=== PATIENT | male | born 1945 | race Caucasian/White ===

== ENCOUNTER → 2016-11-29 | Outpatient (CLI) | payer MEDICARE, BC ==
[2016-11-29 14:03] LABS: ANION GAP 10 MEQ/L (8-16); BLOOD UREA NITROGEN 14 MG/DL (7-18); CALCIUM LEVEL 9.5 MG/DL (8.8-10.2); CARBON DIOXIDE LEVEL 29 MEQ/L (21-32); CHLORIDE LEVEL 102 MEQ/L (98-107); CREATININE FOR GFR 1.16 MG/DL (0.70-1.30); GLOMERULAR FILTRATION RATE > 60.0 (>42); GLUCOSE, FASTING 142 MG/DL (83-110); POTASSIUM SERUM 3.9 MEQ/L (3.5-5.1); SODIUM LEVEL 141 MEQ/L (136-145)
[2016-11-29 14:18] LABS: COLLAGEN ADP 117 SECONDS (56-103)
--- NOTE | 2016-11-29 19:03 | ECGEPIP ---
Stationary ECG Study [facility] Test Date: 2016-11-29 Pat Name: LOGAN MORFIN Department: Room: - Gender: M Cofounder: MATEO : 1945 Requested By: Prieto Bui Order Number: [id number] Reading MD: Prieto Zuñiga Measurements Intervals [place] Rate: 62 P: 44 AK: 172 QRS: 7 QRSD: 98 T: 49 QT: 386 QTc: 395 Interpretive Statements SINUS RHYTHM NONSPECIFIC ST & T-WAVE ABNORMALITY Comparison tracing not on file Electronically Signed On 11-29-2016 19:02:59 EST by Prieto Zuñiga
== END ==
LOC: M LAB 12:45
PROVIDERS: ATTEND Ophthalmology
DX: Z01.818 Encounter for other preprocedural examination (principal); H25.13 Age-related nuclear cataract, bilateral

== ENCOUNTER → 2016-12-16 | Day surgery (SDC) | payer MEDICARE, BC ==
[~2016-12-16] VITALS: Ht 160 cm; Wt 76.2 kg
[~2016-12-16] MED LIST: ACETYLCHOLINE OPHTH SOLN 1% 2ML As Ordered ONE; ASPI1TAB24 PO; BALANCED SALT IRRIGATION SOLUTION 500ML BAG (FOR OR EYE MACHINE) As Ordered ONE; CEFUROXIME 1MG/0.1ML INTRACAMERAL INJ As Ordered ONE; CYCLOPENTOLATE 2% OPHTH SOLN As Ordered ONE; CYCLOPENTOLATE 2% OPHTH SOLN OS SCH; D5W/0.2% SODIUM CHLORIDE 1,000 ML IV SCH; FLOM5CAP PO; FOSI40TA PO; GLIP5TAB15 PO; HEALON DUET (HEALON 10MG/ML 0.55ML & HEALON ENDOCOAT 30MG/ML 0.85ML) As Ordered ONE; HYDR25TAB PO; LIDOCAINE 0.75%/EPINEPHRINE 0.025% IN BSS 1ML SYR INTRACAMERAL (OR ONLY) As Ordered ONE; LIDOCAINE 4% INJ 5 ML AMP As Ordered ONE; LOVA20TA2 PO; METF-415 PO; MIDAZOLAM INJ 2 MG/2 ML VIAL (J2250) As Ordered ONE; OFLOXACIN 0.3 % (OCUFLOX) OPTH SOL 5ML OS ONE; OMEP20CA3 PO; PARO20TA2 PO; PHENYLEPHRINE 2.5% OPHTH SOL 2ML OS ONE; POVIDONE-IODINE 5% OPHTH PREP SOL 30ML As Ordered ONE; PROPARACAINE 0.5% OPHTH SOL 15ML OS ONE; SULI200T PO; TOBRADEX OPHTH OINT 3.5 GM As Ordered ONE; TRAM50TA2 PO; TROPICAMIDE 1% OPHTH SOLN 2 ML OS ONE; fentaNYL 100 MCG/2 ML INJECTION (J3010) As Ordered ONE
[2016-12-16 10:00] VITALS: BP 160/78
--- NOTE | 2016-12-17 13:01 | RO ---
DATE OF PROCEDURE: 12/16/2016 PREOPERATIVE DIAGNOSES: 1. Dense visually significant nuclear sclerotic cataract, left eye. 2. Small pupil, left eye. POSTOPERATIVE DIAGNOSES: 1. Dense visually significant nuclear sclerotic cataract, left eye. 2. Small pupil, left eye. 3. Intraoperative floppy iris syndrome, left eye. PROCEDURE: Complex cataract extraction with use of phacoemulsification, and Malyugin ring and placement of intraocular lens AU00T0, 22.5 Diopters in the left eye. SURGEON: Yusuf Joshi DO REHABILITATION ATTENDANT: ANESTHESIA: Local with monitored anesthesia care (MAC) and peribulbar block (0.75% Marcaine, 2% lidocaine) and use of Shugarcaine (4% lidocaine, 1:1000 epinephrine). COMPLICATIONS: None. POSTOPERATIVE CONDITION: Stable. INDICATION FOR SURGERY: Blurred vision of the left eye affecting patient's activities of daily living. DESCRIPTION OF PROCEDURE: The patient was seen in the preoperative area and properly identified. The correct operative eye was identified and marked. Attention was turned to that eye. The patient received optical antibiotics in the preoperative area. The patient then received topical dilating drops consisting of tropicamide and phenylephrine. The patient was then transferred to the operating room. The correct side was reidentified. The patient received topical anesthetics and antibiotics on the surface of the eye. The eye was prepped and draped in a sterile fashion. The upper and lower eyelids were isolated with Tegaderm tape, and the lids were held open with an adjustable speculum. Using a sideport blade, a paracentesis incision was made. Shugarcaine was then injected into the anterior chamber. Viscoelastic was placed into the anterior chamber, a 2.65mm temporal clear corneal incision was made. A 7 mm Malyugin ring was placed without difficulty. Viscoelastic was then injected into the anterior chamber through the paracentesis. . A continuous curvilinear capsulorrhexis was created with the aid of a 26-gauge cystotome and Utrata forceps. Hydrodissection was performed with BSS on a blunt cannula until the nucleus was freely mobile. The crystalline lens was phacoemulsified and aspirated. Additional cohesive viscoelastic was placed into the capsular bag to deepen it. A AU00T0, 22.5 Diopters lens was placed into the capsular bag and confirmed by visualizing the continuous curvilinear capsulorrhexis. Additional irrigation and aspiration was used to remove cortical material. The Malyugin ring was removed from the eye, and irrigation and aspiration was then used removing the remaining viscoelastic. The clear corneal incision was hydrated with BSS on a blunt cannula. The lens was well positioned. The incisions were then tested for leaks and found to be negative. The eye was then palpated for appropriate pressure and adjusted accordingly with BSS. Several drops of antibiotics and Iopidine were placed in the eye. The eyelid speculum was then carefully removed. Maxitrol ointment was placed in the eye. An eye patch and shield were then secured over the eye. The patient tolerated the procedure well and was discharged to the recovery unit in a stable condition. VERONICA
== END | disposition home or self-care (01) ==
LOC: M SDC 06:35
PROVIDERS: ATTEND Ophthalmology
DX: H25.12 Age-related nuclear cataract, left eye (principal); H21.562 Pupillary abnormality, left eye; H21.81 Floppy iris syndrome; R07.9 Chest pain, unspecified; E11.9 Type 2 diabetes mellitus without complications; G47.30 Sleep apnea, unspecified; I10 Essential (primary) hypertension; E78.5 Hyperlipidemia, unspecified; K21.9 Gastro-esophageal reflux disease without esophagitis; Z79.82 Long term (current) use of aspirin; Z79.899 Other long term (current) drug therapy; F17.210 Nicotine dependence, cigarettes, uncomplicated
CPT/HCPCS: 66982; J2250; J3010; V2632

== ENCOUNTER → 2016-12-30 | Day surgery (SDC) | payer MEDICARE, BC ==
[~2016-12-30] VITALS: Ht 160 cm; Wt 76.0 kg
[~2016-12-30] MED LIST changes: +CYCLOPENTOLATE 1% OPHTH SOLN 2 ML BTL OD SCH; +CYCLOPENTOLATE 2% OPHTH SOLN OD SCH; -CYCLOPENTOLATE 2% OPHTH SOLN OS SCH; -LIDOCAINE 4% INJ 5 ML AMP As Ordered ONE; +OFLOXACIN 0.3 % (OCUFLOX) OPTH SOL 5ML OD ONE; -OFLOXACIN 0.3 % (OCUFLOX) OPTH SOL 5ML OS ONE; +ONDANSETRON 4MG/2ML VIAL (J2405) IV PRN; +PHENYLEPHRINE 2.5% OPHTH SOL 2ML OD ONE; -PHENYLEPHRINE 2.5% OPHTH SOL 2ML OS ONE; +PROPARACAINE 0.5% OPHTH SOL 15ML OD ONE; -PROPARACAINE 0.5% OPHTH SOL 15ML OS ONE; +TROPICAMIDE 1% OPHTH SOLN 2 ML OD ONE; -TROPICAMIDE 1% OPHTH SOLN 2 ML OS ONE
[2016-12-30 09:30] VITALS: BP 134/58
--- NOTE | 2016-12-30 14:45 | RO ---
DATE OF PROCEDURE: 12/30/2016 PREOPERATIVE DIAGNOSES: 1. Dense visually significant nuclear sclerotic cataract right eye. 2. Small pupil right eye. POSTOPERATIVE DIAGNOSES: 1. Dense visually significant nuclear sclerotic cataract right eye. 2. Small pupil right eye. 3. Intraoperative floppy iris syndrome right eye. PROCEDURE: Complex cataract extraction with use of phacoemulsification, Malyugin ring and placement of intraocular lens Efra AU00T0, 22.5 diopters, right eye. SURGEON: Yusuf Joshi DO SENIOR CORPORATE RECRUITER: ANESTHESIA: Local with monitored anesthesia care (MAC) and use of Shugarcaine ( 4% lidocaine, 1:1000 epinephrine). COMPLICATIONS: None. POSTOPERATIVE CONDITION: Stable. INDICATION FOR SURGERY: Blurred vision right eye affecting patient's activities of daily living. DESCRIPTION OF PROCEDURE: The patient was seen in the preoperative area and properly identified. The correct operative eye was identified and marked. Attention was turned to that eye. The patient received optical antibiotics in the preoperative area. The patient then received topical dilating drops consisting of tropicamide and phenylephrine. The patient was then transferred to the operating room. The correct side was reidentified. The patient received topical anesthetics and antibiotics on the surface of the eye. The eye was prepped and draped in a sterile fashion. The upper and lower eyelids were isolated with Tegaderm tape, and the lids were held open with an adjustable speculum. Using a sideport blade, a paracentesis incision was made. Shugarcaine was then injected into the anterior chamber. Viscoelastic was placed into the anterior chamber. A 2.65mm temporal clear corneal incision was made. A 7 mm Malyugin ring was placed without difficulty. Additional viscoelastic was then injected into the anterior chamber. A continuous curvilinear capsulorrhexis was created with the aid of a 26-gauge cystotome and Utrata forceps. Hydrodissection was performed with BSS on a blunt cannula until the nucleus was freely mobile. The crystalline lens was phacoemulsified and aspirated. Additional cohesive viscoelastic was placed into the capsular bag to deepen it. A Efra AU00T0, 22.5 diopters lens was placed into the capsular bag and confirmed by visualizing the continuous curvilinear capsulorrhexis. Additional irrigation and aspiration was used to remove cortical material. The Malyugin ring was removed from the eye, and irrigation and aspiration was then used removing the remaining viscoelastic. The clear corneal incision was hydrated with BSS on a blunt cannula. The lens was well positioned. ReSure sealant was used to close the main incision and the incision was tested with wet tavera and was found to be water tight. The eye was then palpated for appropriate pressure and adjusted accordingly with BSS. Preservative-free compounded Cefuroxime was injected into the paracentesis incision approximately 0.5 mL. The eyelid speculum was then carefully removed. Tobradex ointment was placed in the eye. An eye patch and shield were then secured over the eye. The patient tolerated the procedure well and was discharged to the recovery unit in a stable condition. VERONICA
== END | disposition home or self-care (01) ==
LOC: M SDC 06:43
PROVIDERS: ATTEND Ophthalmology
DX: H25.11 Age-related nuclear cataract, right eye (principal); H21.561 Pupillary abnormality, right eye; H21.81 Floppy iris syndrome; E11.9 Type 2 diabetes mellitus without complications; I10 Essential (primary) hypertension; E78.5 Hyperlipidemia, unspecified; K21.9 Gastro-esophageal reflux disease without esophagitis; R07.9 Chest pain, unspecified; Z79.82 Long term (current) use of aspirin; Z79.899 Other long term (current) drug therapy; F17.210 Nicotine dependence, cigarettes, uncomplicated
CPT/HCPCS: 66982; J2250; J3010; V2632

== ENCOUNTER → 2017-09-16 | Outpatient (REF) | payer MEDICARE, BC ==
[~2017-09-16] MED LIST changes: -ACETYLCHOLINE OPHTH SOLN 1% 2ML As Ordered ONE; +ASPI-161 PO; -ASPI1TAB24 PO; -BALANCED SALT IRRIGATION SOLUTION 500ML BAG (FOR OR EYE MACHINE) As Ordered ONE; -CEFUROXIME 1MG/0.1ML INTRACAMERAL INJ As Ordered ONE; -CYCLOPENTOLATE 1% OPHTH SOLN 2 ML BTL OD SCH; -CYCLOPENTOLATE 2% OPHTH SOLN As Ordered ONE; -CYCLOPENTOLATE 2% OPHTH SOLN OD SCH; -D5W/0.2% SODIUM CHLORIDE 1,000 ML IV SCH; +GLIP1TAB49 PO; -GLIP5TAB15 PO; -HEALON DUET (HEALON 10MG/ML 0.55ML & HEALON ENDOCOAT 30MG/ML 0.85ML) As Ordered ONE; -LIDOCAINE 0.75%/EPINEPHRINE 0.025% IN BSS 1ML SYR INTRACAMERAL (OR ONLY) As Ordered ONE; -MIDAZOLAM INJ 2 MG/2 ML VIAL (J2250) As Ordered ONE; -OFLOXACIN 0.3 % (OCUFLOX) OPTH SOL 5ML OD ONE; -ONDANSETRON 4MG/2ML VIAL (J2405) IV PRN; -PARO20TA2 PO; +PARO20TA3 PO; -PHENYLEPHRINE 2.5% OPHTH SOL 2ML OD ONE; -POVIDONE-IODINE 5% OPHTH PREP SOL 30ML As Ordered ONE; -PROPARACAINE 0.5% OPHTH SOL 15ML OD ONE; -TOBRADEX OPHTH OINT 3.5 GM As Ordered ONE; -TROPICAMIDE 1% OPHTH SOLN 2 ML OD ONE; -fentaNYL 100 MCG/2 ML INJECTION (J3010) As Ordered ONE
== END ==
LOC: M LAB REF 16:30
PROVIDERS: ATTEND Otolaryngology
DX: L02.01 Cutaneous abscess of face (principal)

== ENCOUNTER → 2022-03-15 | Outpatient (CLI) | payer MEDICARE, BC ==
[~2022-03-15] MED LIST changes: +FLOM0.4C39 PO; -FLOM5CAP PO; -FOSI40TA PO; +FOSI40TA59 PO; -GLIP1TAB49 PO; +GLIP5TAB20 PO; +HYDR-3490 PO; -HYDR25TAB PO; +OMEP1CAP73 PO; -OMEP20CA3 PO
== END ==
LOC: M PLARAD 12:32
PROVIDERS: ATTEND Internal Medicine Pulmonary Disease
DX: R91.1 Solitary pulmonary nodule (principal)
CPT/HCPCS: 78815; A9552

== ENCOUNTER → 2022-04-06 | Outpatient (CLI) | payer MEDICARE, BC | LOC: M ONCR 13:56 | PROVIDERS: ATTEND General Practice | DX: R91.1 Solitary pulmonary nodule (principal); R53.83 Other fatigue; J45.909 Unspecified asthma, uncomplicated; Z79.82 Long term (current) use of aspirin; Z79.84 Long term (current) use of oral hypoglycemic drugs; Z79.899 Other long term (current) drug therapy; Z87.891 Personal history of nicotine dependence ==

== ENCOUNTER 2022-04-30 13:40 | Outpatient (RCR) | payer MEDICARE, BC | END 2022-05-02 | LOC: M ONCR 13:40 | PROVIDERS: ATTEND General Practice | DX: C34.11 Malignant neoplasm of upper lobe, right bronchus or lung (principal) ==

== ENCOUNTER 2022-05-04 13:45 | Outpatient (RCR) | payer MEDICARE, BC | END 2022-06-02 | LOC: M ONCR 13:45 | PROVIDERS: ATTEND General Practice | DX: C34.11 Malignant neoplasm of upper lobe, right bronchus or lung (principal) ==

== ENCOUNTER → 2022-08-06 | Outpatient (CLI) | payer MEDICARE, BC | LOC: M ONCR 14:05 | PROVIDERS: ATTEND General Practice | DX: C34.11 Malignant neoplasm of upper lobe, right bronchus or lung (principal); R53.83 Other fatigue; Z92.3 Personal history of irradiation; Z87.891 Personal history of nicotine dependence; Z79.82 Long term (current) use of aspirin; Z79.891 Long term (current) use of opiate analgesic; Z79.899 Other long term (current) drug therapy ==

== ENCOUNTER → 2023-02-09 | Outpatient (CLI) | payer MEDICARE, BC | LOC: M ONCR 09:58 | PROVIDERS: ATTEND General Practice | DX: C34.11 Malignant neoplasm of upper lobe, right bronchus or lung (principal); C34.12 Malignant neoplasm of upper lobe, left bronchus or lung; I51.9 Heart disease, unspecified; Z87.891 Personal history of nicotine dependence; Z92.3 Personal history of irradiation ==

== ENCOUNTER → 2023-03-02 | Outpatient (RCR) | payer MEDICARE, BC | LOC: M ONCR 02-16 13:53 | PROVIDERS: ATTEND General Practice | DX: C34.12 Malignant neoplasm of upper lobe, left bronchus or lung (principal); C34.11 Malignant neoplasm of upper lobe, right bronchus or lung ==

== ENCOUNTER 2023-03-08 14:17 | Outpatient (RCR) | payer MEDICARE, BC | END 2023-04-01 | LOC: M ONCR 14:17 | PROVIDERS: ATTEND General Practice | DX: C34.11 Malignant neoplasm of upper lobe, right bronchus or lung (principal); C34.12 Malignant neoplasm of upper lobe, left bronchus or lung ==

== ENCOUNTER 2023-06-08 14:32 | Outpatient (CLI) | payer MEDICARE, BC | END 2023-07-02 23:59 | disposition home or self-care (01) | LOC: M ONCR 14:32 | PROVIDERS: ATTEND General Practice | DX: R91.8 Other nonspecific abnormal finding of lung field (principal); Z71.2 Person consulting for explanation of examination or test findings; J45.909 Unspecified asthma, uncomplicated; Z79.82 Long term (current) use of aspirin; Z79.84 Long term (current) use of oral hypoglycemic drugs; Z79.899 Other long term (current) drug therapy; Z87.891 Personal history of nicotine dependence; Z92.3 Personal history of irradiation ==

== ENCOUNTER → 2023-12-09 | Outpatient (CLI) | payer MEDICARE ==
[~2023-12-09] MED LIST changes: -ASPI-161 PO; +ASPI-615 PO
== END ==
LOC: M ONCR 14:20
PROVIDERS: ATTEND General Practice
DX: C34.11 Malignant neoplasm of upper lobe, right bronchus or lung (principal); C34.12 Malignant neoplasm of upper lobe, left bronchus or lung; Z71.2 Person consulting for explanation of examination or test findings; Z79.82 Long term (current) use of aspirin; Z79.84 Long term (current) use of oral hypoglycemic drugs; Z79.899 Other long term (current) drug therapy; Z86.16 Personal history of COVID-19; Z87.891 Personal history of nicotine dependence; Z92.3 Personal history of irradiation

== ENCOUNTER → 2023-12-19 | Outpatient (REF) | payer MEDICARE ==
[2023-12-20 17:36] LABS: CREATININE, URINE 55.9 MG/DL; MAU/CREAT RATIO 5.3 MCG/MG (0.0-30.0)
== END ==
LOC: M LAB REF 16:47
PROVIDERS: ATTEND Nurse Practitioner Family
DX: E11.65 Type 2 diabetes mellitus with hyperglycemia (principal)

== ENCOUNTER → 2024-06-12 | Outpatient (CLI) | payer MEDICARE | LOC: M ONCR 13:56 | PROVIDERS: ATTEND General Practice | DX: Z08 Encounter for follow-up examination after completed treatment for malignant neoplasm (principal); Z85.818 Personal history of malignant neoplasm of other sites of lip, oral cavity, and pharynx; Z87.891 Personal history of nicotine dependence; Z79.82 Long term (current) use of aspirin; Z79.84 Long term (current) use of oral hypoglycemic drugs; Z79.899 Other long term (current) drug therapy; Z92.3 Personal history of irradiation ==

== ENCOUNTER → 2024-12-12 | Outpatient (CLI) | payer MEDICARE ==
[~2024-12-12] MED LIST changes: +GLIP-318 PO; -GLIP5TAB20 PO
== END ==
LOC: M ONCR 13:59
PROVIDERS: ATTEND General Practice
DX: Z08 Encounter for follow-up examination after completed treatment for malignant neoplasm (principal); Z85.118 Personal history of other malignant neoplasm of bronchus and lung; J18.9 Pneumonia, unspecified organism; Z87.891 Personal history of nicotine dependence; Z92.3 Personal history of irradiation; Z79.82 Long term (current) use of aspirin; Z79.84 Long term (current) use of oral hypoglycemic drugs; Z79.899 Other long term (current) drug therapy